=== PATIENT | female | born 1990 | race Caucasian/White ===

== ENCOUNTER 2017-08-09 15:00 | Emergency (ER) | payer OTHER | END 2017-08-09 16:33 | disposition home or self-care (01) | LOC: D.ER 15:00 | DX: J11.1 Influenza due to unidentified influenza virus with other respiratory manifestations (principal); R05 Cough ==

== ENCOUNTER → 2017-11-25 20:13 | Emergency (ER) | payer OTHER ==
[~2017-11-25 20:13] MED LIST: CLEOCIN HCL300 MG PO; IBUPROFEN800 MG PO; MUPIROCIN22 GM TOPICAL
== END | disposition left against medical advice (07) ==
LOC: D.ER 20:13
DX: L02.415 Cutaneous abscess of right lower limb (principal); F17.200 Nicotine dependence, unspecified, uncomplicated

== ENCOUNTER → 2017-11-25 22:15 | Emergency (ER) | payer OTHER | END | disposition left against medical advice (07) | LOC: D.ER 22:15 | DX: L02.415 Cutaneous abscess of right lower limb (principal); N61.1 Abscess of the breast and nipple; F17.200 Nicotine dependence, unspecified, uncomplicated ==

== ENCOUNTER 2017-11-26 14:06 | Emergency (ER) | payer OTHER ==
[~2017-11-26] VITALS: Ht 160 cm; Wt 109.1 kg
[2017-11-26 14:10] VITALS: Ht 160 cm; Wt 109.1 kg
[2017-11-26] MEDS ORDERED: MUPIROCIN22 GM TOPICAL (16:37)
[2017-11-26] MEDS ORDERED: IBUPROFEN800 MG PO (16:37)
[2017-11-26] MEDS ORDERED: CLEOCIN HCL300 MG PO (16:37)
[2017-11-26 17:31] VITALS: BP 145/87
== END 2017-11-26 17:33 | disposition home or self-care (01) ==
LOC: D.ER 14:06
DX: L02.415 Cutaneous abscess of right lower limb (principal); F17.200 Nicotine dependence, unspecified, uncomplicated